=== PATIENT | male | born 1995 | race Caucasian/White ===

== ENCOUNTER → 2016-11-12 | Outpatient (CLI) | payer OTHER, MEDICAID | LOC: M OUTALCOH 10:44 | PROVIDERS: ATTEND Psychiatry & Neurology Psychiatry | DX: Z13.9 Encounter for screening, unspecified (principal); F12.10 Cannabis abuse, uncomplicated ==

== ENCOUNTER 2016-11-20 10:22 | Outpatient (RCR) | payer OTHER, MEDICAID | END 2016-12-16 | LOC: M OUTALCOH 10:22 | PROVIDERS: ATTEND Psychiatry & Neurology Psychiatry | DX: F12.10 Cannabis abuse, uncomplicated (principal) ==

== ENCOUNTER → 2017-01-19 | Outpatient (REF) | payer OTHER, MEDICAID ==
[2017-01-25 14:08] LABS: Cannabidiol Negative (.)
== END ==
LOC: M LABDRAW1 11:54
PROVIDERS: ATTEND Psychiatry & Neurology Psychiatry
DX: F12.10 Cannabis abuse, uncomplicated (principal)

== ENCOUNTER 2017-02-09 09:00 | Outpatient (RCR) | payer OTHER, MEDICAID | END 2017-02-15 | LOC: M OUTALCOH 09:00 | PROVIDERS: ATTEND Psychiatry & Neurology Psychiatry | DX: Z13.9 Encounter for screening, unspecified (principal); F12.20 Cannabis dependence, uncomplicated; F17.200 Nicotine dependence, unspecified, uncomplicated ==

== ENCOUNTER 2017-03-17 16:00 | Outpatient (RCR) | payer OTHER, MEDICAID | END 2017-03-18 | LOC: M OUTALCOH 16:00 | PROVIDERS: ATTEND Psychiatry & Neurology Psychiatry | DX: Z13.9 Encounter for screening, unspecified (principal); F12.20 Cannabis dependence, uncomplicated; F17.200 Nicotine dependence, unspecified, uncomplicated ==

== ENCOUNTER 2017-04-14 16:00 | Outpatient (RCR) | payer OTHER, MEDICAID | END 2017-04-17 | LOC: M OUTALCOH 16:00 | PROVIDERS: ATTEND Psychiatry & Neurology Psychiatry | DX: Z13.9 Encounter for screening, unspecified (principal); F12.20 Cannabis dependence, uncomplicated; F17.200 Nicotine dependence, unspecified, uncomplicated ==

== ENCOUNTER → 2017-05-18 | Outpatient (RCR) | payer OTHER, MEDICAID ==
[~2017-05-18] MED LIST: NORCOTAB PO; PENI500T PO; PRED20TA PO
== END ==
LOC: M OUTALCOH 04-24 11:41
PROVIDERS: ATTEND Psychiatry & Neurology Psychiatry
DX: Z13.9 Encounter for screening, unspecified (principal); F12.20 Cannabis dependence, uncomplicated; F17.200 Nicotine dependence, unspecified, uncomplicated

== ENCOUNTER 2017-06-15 10:00 | Outpatient (RCR) | payer MEDICAID, OTHER | END 2017-06-18 | LOC: M OUTALCOH 10:00 | PROVIDERS: ATTEND Psychiatry & Neurology Psychiatry | DX: F12.20 Cannabis dependence, uncomplicated (principal) ==

== ENCOUNTER 2017-07-07 23:34 | Emergency (ER) | payer MEDICAID ==
[~2017-07-07] VITALS: Ht 182.9 cm; Wt 65.0 kg
[2017-07-08] MEDS ORDERED: dexameTHASONE 20 MG/5 ML VIAL (J1100) IV ONE (03:00)
[2017-07-08] MEDS: IPRATROPIUM 0.5MG/ALBUTEROL 2.5MG INH SOL UD 3ML (DUONEB)(J7620) NEB SCH ×2 (03:16→03:17)
[2017-07-08] MEDS ORDERED: PRED20TA PO (03:52)
[2017-07-08 04:03] VITALS: BP 110/74
--- NOTE | 2017-07-08 08:12 | REP ---
PA and lateral chest: There are no comparisons. The lung mckay are clear. The cardiac size is normal The terrie, mediastinum, and bony thorax are unremarkable. Impression: Negative PA and lateral chest. Signed by Jose Mcdaniels MD 07/08/2017 08:03 A
== END 2017-07-08 04:04 | disposition home or self-care (01) ==
LOC: M ED 23:34
DX: J20.9 Acute bronchitis, unspecified (principal); Z72.0 Tobacco use
CPT/HCPCS: 71020; 94640; 96374; 99283; J1100

== ENCOUNTER 2017-07-14 19:24 | Emergency (ER) | payer MEDICAID ==
[~2017-07-14] VITALS: Ht 182.9 cm; Wt 64.6 kg
[~2017-07-14 19:24] MED LIST changes: -NORCOTAB PO; -PENI500T PO
[2017-07-14] MEDS ORDERED: PENI500T PO (20:35)
[2017-07-14] MEDS ORDERED: NORCOTAB PO (20:35)
[2017-07-14] MEDS: NORCO 5/325MG TABLET (BULK FOR ED) PO ONE (20:48)
[2017-07-14] MEDS: PENICILLIN V POTASSIUM 500 MG TAB PO ONE (20:48)
[2017-07-14 21:00] VITALS: BP 123/76
== END 2017-07-14 21:01 | disposition home or self-care (01) ==
LOC: M ED 19:24
DX: K02.9 Dental caries, unspecified (principal); Z72.0 Tobacco use

== ENCOUNTER 2017-07-17 08:45 | Outpatient (RCR) | payer MEDICAID, OTHER ==
[~2017-07-17 08:45] MED LIST changes: +NORCOTAB PO; +PENI500T PO
== END 2017-07-18 ==
LOC: M OUTALCOH 08:45
PROVIDERS: ATTEND Psychiatry & Neurology Psychiatry
DX: F12.20 Cannabis dependence, uncomplicated (principal)

== ENCOUNTER 2018-07-12 17:07 | Emergency (ER) | payer MEDICAID | END 2018-07-12 20:15 | disposition home or self-care (01) | LOC: M ED 20:15 | DX: K02.9 Dental caries, unspecified (principal); Z88.1 Allergy status to other antibiotic agents; Z91.012 Allergy to eggs; Z91.018 Allergy to other foods | CPT/HCPCS: 99283 ==

== ENCOUNTER 2018-07-20 18:41 | Emergency (ER) | payer MEDICAID ==
[2018-07-20] MEDS: NORCO, ANEXSIA 5/325MG TABLET (HYDROcodone/ACETAMINOPHEN) PO (21:05)
[2018-07-20] MEDS: ONDANSETRON 4 MG ORAL DISINTEGRATING TAB (Q0162 PER 1MG) PO (21:07)
== END 2018-07-20 21:14 | disposition home or self-care (01) ==
LOC: M ED 18:41
DX: S02.5XXA Fracture of tooth (traumatic), initial encounter for closed fracture (principal); X58.XXXA Exposure to other specified factors, initial encounter; Y92.89 Other specified places as the place of occurrence of the external cause; R11.10 Vomiting, unspecified; F17.210 Nicotine dependence, cigarettes, uncomplicated; Z88.1 Allergy status to other antibiotic agents; Z91.012 Allergy to eggs; Z91.018 Allergy to other foods
CPT/HCPCS: Q0162

== ENCOUNTER 2018-07-26 18:44 | Emergency (ER) | payer MEDICAID ==
[2018-07-26] MEDS: LIDOCAINE VISCOUS 2% SOLN 15ML UDC MT (20:24)
== END 2018-07-26 20:25 | disposition home or self-care (01) ==
LOC: M ED 18:44
DX: K04.7 Periapical abscess without sinus (principal); K02.9 Dental caries, unspecified; J45.909 Unspecified asthma, uncomplicated; R51 Headache; F41.9 Anxiety disorder, unspecified; F17.200 Nicotine dependence, unspecified, uncomplicated; Z88.1 Allergy status to other antibiotic agents; Z91.018 Allergy to other foods; Z91.012 Allergy to eggs; Z79.1 Long term (current) use of non-steroidal anti-inflammatories (NSAID)
CPT/HCPCS: 99283

== ENCOUNTER 2018-08-11 15:05 | Emergency (ER) | payer MEDICAID ==
[2018-08-11] MEDS: PERCOCET 5MG/325MG TAB PO (18:30)
== END 2018-08-11 18:46 | disposition home or self-care (01) ==
LOC: M ED 15:05
DX: K08.89 Other specified disorders of teeth and supporting structures (principal); E04.1 Nontoxic single thyroid nodule; Z88.1 Allergy status to other antibiotic agents; Z88.8 Allergy status to other drugs, medicaments and biological substances; Z91.018 Allergy to other foods; Z91.012 Allergy to eggs
CPT/HCPCS: 99283

== ENCOUNTER 2019-01-05 12:30 | Emergency (ER) | payer MEDICAID ==
[~2019-01-05] VITALS: Ht 185.4 cm; Wt 66.8 kg
[~2019-01-05 12:30] MED LIST changes: +NAPR-885 PO; +PENI1TAB17; +PENI1TAB17 PO; +ZOFR4TAB14 PO
[2019-01-05] MEDS ORDERED: IPRATROPIUM 0.5MG/ALBUTEROL 2.5MG INH SOL UD 3ML (DUONEB)(J7620) NEB ONE (13:15)
[2019-01-05 13:26] LABS: INFLUENZA A AMPLIFICATION NEGATIVE (NEGATIVE); INFLUENZA B AMPLIFICATION NEGATIVE (NEGATIVE)
[2019-01-05] MEDS ORDERED: MUCI600T37 PO (13:33)
[2019-01-05] MEDS ORDERED: IBUP-1022 PO (13:33)
[2019-01-05] MEDS ORDERED: VENTAER INH (13:33)
[2019-01-05] MEDS ORDERED: BENZ200C70 PO (13:33)
[2019-01-05] MEDS ORDERED: ROBA500T PO (13:33)
[2019-01-05 13:40] VITALS: BP 135/79
== END 2019-01-05 13:48 | disposition home or self-care (01) ==
LOC: M ED 12:30
DX: J06.9 Acute upper respiratory infection, unspecified (principal); S29.012A Strain of muscle and tendon of back wall of thorax, initial encounter; X58.XXXA Exposure to other specified factors, initial encounter; Y92.89 Other specified places as the place of occurrence of the external cause; J45.909 Unspecified asthma, uncomplicated; E07.9 Disorder of thyroid, unspecified; Z88.1 Allergy status to other antibiotic agents; Z91.012 Allergy to eggs; Z91.018 Allergy to other foods; F17.210 Nicotine dependence, cigarettes, uncomplicated

== ENCOUNTER 2019-02-08 14:53 | Emergency (ER) | payer OTHER ==
[~2019-02-08] VITALS: Ht 185.4 cm; Wt 70.5 kg
[~2019-02-08 14:53] MED LIST changes: +BENZ200C70 PO; +HYDR-3715 PO; +IBUP-1022 PO; +MUCI600T37 PO; -NORCOTAB PO; +ROBA500T PO; +VENTAER INH
[2019-02-08] MEDS ORDERED: ACET160S3 PO (15:01)
[2019-02-08] MEDS ORDERED: TRAM50TA2 PO (17:01)
[2019-02-08] MEDS ORDERED: PENI500T PO (17:01)
[2019-02-08 17:05] VITALS: BP 121/70
== END 2019-02-08 17:02 | disposition home or self-care (01) ==
LOC: M ED 14:53
DX: R68.84 Jaw pain (principal); K08.89 Other specified disorders of teeth and supporting structures; E07.9 Disorder of thyroid, unspecified; Z88.1 Allergy status to other antibiotic agents; Z91.012 Allergy to eggs; Z91.018 Allergy to other foods; F17.210 Nicotine dependence, cigarettes, uncomplicated

== ENCOUNTER 2022-12-29 22:22 | Emergency (ER) | payer OTHER ==
[~2022-12-29] VITALS: Ht 185.4 cm; Wt 74.1 kg
[~2022-12-29 22:22] MED LIST changes: +ACET160S3 PO; +TRAM50TA2 PO
[2022-12-29 22:23] VITALS: BP 127/75
== END 2022-12-30 02:48 | disposition left against medical advice (07) ==
LOC: M ED 22:22
DX: S20.211A Contusion of right front wall of thorax, initial encounter (principal); W13.2XXA Fall from, out of or through roof, initial encounter; Y92.099 Unspecified place in other non-institutional residence as the place of occurrence of the external cause; Z53.9 Procedure and treatment not carried out, unspecified reason; F17.200 Nicotine dependence, unspecified, uncomplicated; Z88.1 Allergy status to other antibiotic agents; Z91.012 Allergy to eggs; Z91.018 Allergy to other foods

== ENCOUNTER 2025-01-22 20:08 | Emergency (ER) | payer BC, MEDICAID ==
[~2025-01-22] VITALS: Ht 185.4 cm; Wt 77.9 kg
[2025-01-22 20:20] VITALS: TEMP 97.9
[2025-01-22] MEDS ORDERED: IPRATROPIUM 0.5MG/ALBUTEROL 2.5MG INH SOL UD 3ML NEB ONE (20:35)
[2025-01-22 20:47] LABS: BASO # 0.1 10^3/uL (0.0-0.2); BASO % 0.8 % (0.0-1.0); EOS # 0.3 10^3/uL (0.0-0.5); EOS % 2.9 % (0.0-3.0); HEMATOCRIT 42.2 % (42.0-52.0); HEMOGLOBIN 14.4 g/dl (13.5-17.5); LYMPH # 3.4 10^3/uL (1.5-5.0); LYMPH % 33.8 % (24.0-44.0); MEAN CORPUSCULAR HEMOGLOBIN 29.8 pg (27.0-33.0); MEAN CORPUSCULAR HGB CONC 34.1 g/dl (32.0-36.5); MEAN CORPUSCULAR VOLUME 87.2 fl (80.0-96.0); MONO # 0.7 10^3/uL (0.0-0.8); MONO % 6.5 % (2.0-8.0); NEUTROPHILS # 5.6 10^3/uL (1.5-8.5); NEUTROPHILS % 55.5 % (36.0-66.0); PLATELET COUNT, AUTOMATED 325 10^3/uL (150-450); RED BLOOD COUNT 4.84 10^6/uL (4.30-6.10); WHITE BLOOD COUNT 10.1 10^3/uL (4.0-10.0)
[2025-01-22 21:01] LABS: CK-MB VALUE MASS < 1.0 NG/ML (<3.6)
[2025-01-22 21:02] LABS: BLOOD UREA NITROGEN 11 MG/DL (9-23); CALCIUM LEVEL 8.7 MG/DL (8.5-10.1); CARBON DIOXIDE LEVEL 26 MMOL/L (20-31); CHLORIDE LEVEL 109 MMOL/L (98-107); CPK CREATINE PHOSPHOKINASE 104 U/L (46-171); GLOMERULAR FILTRATION RATE > 60.0 (>60); GLUCOSE, FASTING 93 MG/DL (60-100); MB/CK RELATIVE INDEX 0.96 (< OR =4); SODIUM LEVEL 142 MMOL/L (136-145)
[2025-01-22] MEDS: KETOROLAC 30 MG/ML 1ML VIAL IV ONE (21:16)
[2025-01-22] MEDS: UNRESOLVED CLARIFICATION ENTRY XX STA (21:30)
[2025-01-22 22:00] VITALS: BP 138/88; O2SAT 98
[2025-01-22 22:02] LABS: CK-MB VALUE MASS < 1.0 NG/ML (<3.6)
[2025-01-22 22:04] LABS: CPK CREATINE PHOSPHOKINASE 107 U/L (46-171); MB/CK RELATIVE INDEX 0.93 (< OR =4)
== END 2025-01-22 22:20 | disposition home or self-care (01) ==
LOC: M ED 20:08 → EDBD 20:08 → M ED 22:20
DX: B34.8 Other viral infections of unspecified site (principal); R07.89 Other chest pain; J45.909 Unspecified asthma, uncomplicated; F41.9 Anxiety disorder, unspecified; Z88.1 Allergy status to other antibiotic agents; F17.210 Nicotine dependence, cigarettes, uncomplicated
CPT/HCPCS: 71045; 80048; 82550; 82553; 84484; 85025; 87486; 87581; 87633; 87798; 93005; 93041; 94760; 96374; 99285; J1885

== ENCOUNTER 2025-03-08 11:33 | Emergency (ER) | payer BC, MEDICAID ==
[~2025-03-08] VITALS: Ht 185.4 cm; Wt 76.6 kg
[2025-03-08 13:13] LABS: BASO % 0.3 % (0.0-1.0); EOS # 0.1 10^3/uL (0.0-0.5); EOS % 0.4 % (0.0-3.0); HEMATOCRIT 42.2 % (42.0-52.0); HEMOGLOBIN 14.1 g/dl (13.5-17.5); LYMPH # 1.8 10^3/uL (1.5-5.0); LYMPH % 14.4 % (24.0-44.0); MEAN CORPUSCULAR HEMOGLOBIN 29.9 pg (27.0-33.0); MEAN CORPUSCULAR HGB CONC 33.4 g/dl (32.0-36.5); MEAN CORPUSCULAR VOLUME 89.4 fl (80.0-96.0); MONO # 1.1 10^3/uL (0.0-0.8); MONO % 9.1 % (2.0-8.0); NEUTROPHILS # 9.5 10^3/uL (1.5-8.5); NEUTROPHILS % 75.4 % (36.0-66.0); PLATELET COUNT, AUTOMATED 333 10^3/uL (150-450); RED BLOOD COUNT 4.72 10^6/uL (4.30-6.10); WHITE BLOOD COUNT 12.6 10^3/uL (4.0-10.0)
[2025-03-08 13:47] LABS: BLOOD UREA NITROGEN 7 MG/DL (9-23); CALCIUM LEVEL 9.9 MG/DL (8.5-10.1); CARBON DIOXIDE LEVEL 30 MMOL/L (20-31); CHLORIDE LEVEL 102 MMOL/L (98-107); GLOMERULAR FILTRATION RATE > 90.0 (>60); GLUCOSE, FASTING 97 MG/DL (60-100); POTASSIUM SERUM 4.2 MMOL/L (3.5-5.1); SODIUM LEVEL 142 MMOL/L (136-145)
[2025-03-08] MEDS ORDERED: ISOVUE-370 76% 100ML VIAL As Ordered ONE (14:20)
[2025-03-08 14:22] VITALS: BP 127/77; TEMP 98.6; O2SAT 100
[2025-03-08] MEDS: KETOROLAC 30 MG/ML 1ML VIAL IV ONE (14:33)
[2025-03-08] MEDS: AMPICILLIN SOD/SULBACTAM SOD 3 GM in DEXTROSE 5% (D5W) MINI-BAG PLU 100 ML IV ONE (14:36)
[2025-03-08] MEDS: dexAMETHasone 20MG/5ML VIAL IV ONE (14:36)
[2025-03-08] MEDS ORDERED: AMOX875T2 PO (15:21)
== END 2025-03-08 15:34 | disposition home or self-care (01) ==
LOC: M ED 11:33
DX: K04.7 Periapical abscess without sinus (principal); J45.909 Unspecified asthma, uncomplicated; F17.200 Nicotine dependence, unspecified, uncomplicated; Z88.1 Allergy status to other antibiotic agents; Z91.018 Allergy to other foods; Z91.012 Allergy to eggs
CPT/HCPCS: 70491; 80048; 85025; 96374; 96375; 99284; J0295; J1100; J1885; Q9967